=== PATIENT | female | born 1955 | race Caucasian/White ===

== ENCOUNTER 2025-01-29 13:14 | Outpatient (AMB) | payer MEDICARE, SELFPAY ==
--- NOTE | 2025-01-29 13:16 | A.OFFPC_ITS ---
Vital Signs 01/29/25 13:19 Height 5 ft 1.42 in Weight 136 lb BMI 25.3 BP 126/82 Blood Pressure Location Lt brachial Position Sitting Respiration 12 Pulse 78 Pulse Source Pulse Oximeter Temp 97.9 F Temp Source Oral Pulse Oximetry (%) 98 Oxygen Delivery Method Room Air Intake Visit Reasons: est care Intake Note: New patient visit [employer] De[employer] Required: No Allergies No Known Allergies Allergy (Verified 01/29/25 13:27) Medication List - Last Reconciled 02/04/25 by Lucy Koenig MD albuterol sulfate 90 mcg/actuation 2 inhalations inhalation Q4-6H PRN [calcium PO] estradiol 0.01%(0.1mg/gram) 1 appful vaginal DAILY multivitamin 1 tab PO DAILY zoledronic cxwq-lwcufjit-geopa 5 mg/100 mL (Reclast) ea IV Tobacco use date assessed: 01/29/25 Fall risk assessment: No Falls in past year Last assessed Fall Risk: 01/29/25 Dental Screening Dental Screen Date: 01/29/25 Did you have a dental visit in the last 12 months?: Yes Did you have a dental problem in the last 6 months where you did not have access to dental care?: No Was dental information given to patient?: Patient has dentist HPI HPI Comments History of Present Illness Details This is a 69 year old female with past medical history of mild intermittent asthma, osteoporosis, cystocele, presenting to [facility]. Transfer from [place] Mild intermittent asthma-on albuterol as needed. Usually only flairs when sick Venous insufficiency-saw vascular at [place]-Dr Petersen. Recommended to wear compression MSK: Left knee pain & OA. Sees orthopedics [facility]. 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 Will be due in Fall Colonoscopy 2018 Dr Haro-5 years. Was scheduled had bad reaction to prep to rescheduled for February. ROS CONSTITUTIONAL: Denies weight loss, fever and chills. HEENT: Denies changes in vision and hearing. RESPIRATORY: Denies SOB and cough. CV: Denies palpitations and CP GI: Denies abdominal pain, nausea, vomiting and diarrhea. : Denies dysuria and urinary frequency. MSK: Denies new myalgia and joint pain. SKIN: Denies rash and pruritus. NEUROLOGICAL: Denies headache PSYCHIATRIC: Denies recent changes in mood. PHYSICAL EXAM: GENERAL: Alert and oriented x 3. NAD EYES: EOMI. Anicteric. HENT: Moist mucous membranes. No scleral icterus. No cervical lymphadenopathy. LUNGS: Clear to auscultation bilaterally. CARDIOVASCULAR: Regular rate and rhythm. No murmur. No JVD. ABDOMEN: Soft, non-tender +bs EXTREMITIES: No edema. Non-tender. SKIN: No rashes or lesions. Warm. NEUROLOGIC: No focal neurological deficits. CN II-XII grossly intact PSYCHIATRIC: Cooperative. Appropriate mood and affect [facility] Medical History History of endometrial biopsy Surgical History H/O colonoscopy Family History Mother Cancer of breast HTN (hypertension) Mild cognitive impairment Father Kidney disease Brother High cholesterol Sister Esophageal cancer Other FH: mental illness Social History Housing: House Alcohol intake: current Patient Tobacco Use Status: Never used Tobacco e-Cigarette/Vaping Use: Never Used Second Hand Smoke Exposure: No service: No Current occupational status: retired Cognitive needs: No Hearing needs: No Vision needs: Yes (glasses) Questionnaire PHQ-9 Over the last 2 weeks, how often have you been bothered by any of the following problems? 1. Little interest or pleasure in doing things: not at all 2. Feeling down, depressed, or hopeless: not at all 3. Trouble falling or staying asleep, or sleeping too much: not at all 4. Feeling tired or having little energy: not at all 5. Poor appetite or overeating: not at all 6. Feeling bad about yourself - or that you are a failure or have let yourself or your family down: not at all 7. Trouble concentrating on things, such as reading the newspaper or watching television: not at all 8. Moving or speaking so slowly that other people could have noticed. Or the opposite - being so fidgety or restless that you have been moving around a lot more than usual: not at all 9. Thoughts that you would be better off or of hurting yourself in some way: not at all Total score: 0 Depression Screening Interpretation: Negative Depression Screening Done: Yes 97610 - PHQ-9 Billing: Yes Source: Developed by Drs. Laci Herzog, Monica Anderson, Asael Jackson and colleagues, with an educational daniel from [employer]. Thrive Questionnaire Date Thrive assessed: 01/29/25 I am a: Patient What is your living situation today?: I have a steady place to live Within the past 12 months, did the food you bought not last and you didn't have the money to get more?: Never true Within the past 12 months, did you worry whether your food would run out before you got money to buy more?: Never true Do you have trouble paying for medicines?: No Do you have trouble getting transportation to medical appointments?: No Do you have trouble paying your heating and electricity bill?: No Do you have trouble taking care of your child, family member or friend?: No Do you have trouble with day-to-day activities such as bathing, preparing meals, shopping, managing finances, etc.?: No Are you currently unemployed and looking for a job?: No Are you interested in more education?: No Please select the resources that you would like help with: None Currently or been in a relationship where the following occur: No concerns reported THRIVE Score: 0 AUDIT C Alcohol Use Questionnaire (AUDIT-C) 1. How often do you have a drink containing alcohol?: Monthly or less 2. How many drinks containing alcohol do you have on a typical day when you are drinking?: 1 or 2 3. How often do you have six or more drinks on one occasion?: Never Total Score: 1 MARJORIE-7 AMB Questionnaire MARJORIE-7 Date MARJORIE - 7 assessed: 01/29/25 Feeling nervous, anxious, or on edge: 0 = Not at all Not being able to stop or control worryin = Not at all Worrying too much about different things: 0 = Not at all Trouble relaxin = Not at all Being so restless that it is hard to sit still: 0 = Not at all Becoming easily annoyed or irritable: 0 = Not at all Feeling afraid as if something awful might happen: 0 = Not at all Total MARJORIE-7 score (0-4 normal; 5-9 mild; 10-14 moderate; 15-21 severe): 0 Source: Developed by Drs. Laci Herzog, Monica Anderson, Asael Jackson and colleagues, with an educational daniel from [employer]. MARJORIE-7 Assessment Billing MARJORIE-7 Assessment Tool: MARJORIE-7 Assessment 71699 Physical exam (Primary Care) Vital Signs: Last Vital Signs Temp 97.9 F 01/29/25 13:19 Pulse 78 01/29/25 13:19 Resp 12 01/29/25 13:19 BP 126/82 01/29/25 13:19 Pulse Ox 98 01/29/25 13:19 Oxygen Delivery Method Room Air 01/29/25 13:19 BMI result Body Mass Index 25.3 Tobacco/Smoking Status: Tobacco use Status Tobacco use date assessed 01/29/25 01/29/25 13:28 Patient Tobacco Use Status Never used Tobacco 01/29/25 13:27 e-Cigarette/Vaping Use Never Used 01/29/25 13:28 PHQ-9: PHQ-9 Score PHQ-9: Total score 0 02/03/25 22:49 Depression Screening Interpretation: Negative Thrive Assessment: Date of Thrive Assessment Date Thrive assessed 01/29/25 01/29/25 13:24 Currently or been in a relationship where the following occur: No concerns reported Coding Level of Care Code New Pt Level 4 (22358) Complex EM visit Add On G2211 Diagnoses Other osteoporosis, unspecified pathological fracture presence M81.8 Osteoporosis type: other Presence of current pathological fracture: unspecified Venous insufficiency I87.2 History of hysterectomy Z90.710 Additional Codes MARJORIE-7 Assessment Billing - MARJORIE-7 Assessment Tool: MARJORIE-7 Assessment 47074 ([id number]) PHQ-9 - 24007 - PHQ-9 Billing: Yes ([id number]) Assessment & Plan Assessment & Plan (1) Osteoporosis: Code(s): M81.0 - Age-related osteoporosis without current pathological fracture Category: Medical Qualifiers: Osteoporosis type: other Presence of current pathological fracture: unspecified Qualified Code(s): M81.8 - Other osteoporosis without current pathological fracture (2) Venous insufficiency: Code(s): I87.2 - Venous insufficiency (chronic) (peripheral) Category: Medical (3) History of hysterectomy: Code(s): Z90.710 - Acquired absence of both cervix and uterus Category: Surgical Plan 69 year old female presenting to [facility] care past medical, surgical, social reviewed Labs ordered Mammo, bone density orders Orders: Orders TSH reflex Free T4 01/29/25 R35.89 - Other polyuria, Z13.0 - Encounter for screening for diseases of the blood and blood-forming organs and certain disorders involving the immune mechanism, Z13.220 - Encounter for screening for lipoid disorders, Z13.228 - Encounter for screening for other metabolic disorders Hemoglobin and Hematocrit 01/29/25 R35.89 - Other polyuria, Z13.0 - Encounter for screening for diseases of the blood and blood-forming organs and certain disorders involving the immune mechanism, Z13.220 - Encounter for screening for lipoid disorders, Z13.228 - Encounter for screening for other metabolic disorders XR DEXA axial skeleton 01/29/25 M81.0 - Age-related osteoporosis without current pathological fracture MM tomosynthesis screening BI 01/29/25 Z12.31 - Encounter for screening mammogram for malignant neoplasm of breast Complete Blood Count Auto Diff 01/29/25 R35.89 - Other polyuria, Z13.0 - Encounter for screening for diseases of the blood and blood-forming organs and certain disorders involving the immune mechanism, Z13.220 - Encounter for screening for lipoid disorders, Z13.228 - Encounter for screening for other metabolic disorders Comprehensive Met. Panel 01/29/25 R35.89 - Other polyuria, Z13.0 - Encounter for screening for diseases of the blood and blood-forming organs and certain disorders involving the immune mechanism, Z13.220 - Encounter for screening for lipoid disorders, Z13.228 - Encounter for screening for other metabolic disorders Lipid Panel 01/29/25 R35.89 - Other polyuria, Z13.0 - Encounter for screening for diseases of the blood and blood-forming organs and certain disorders involving the immune mechanism, Z13.220 - Encounter for screening for lipoid disorders, Z13.228 - Encounter for screening for other metabolic disorders Medications: New albuterol sulfate 90 mcg/actuation 2 inhalations inhalation Q4-6H PRN 1 ea 3RF shortness of breath or wheezing
[2025-01-29 13:19] VITALS: BP 126/82; PULSE 78; RESP 12; TEMP 36.6; O2SAT 98; BMI 25.3
--- OUTSIDE RECORDS SUMMARY | 2025-01-29 14:02 | XMS_ITS ---
Author Name [facility] Organization Unknown Care Team Organization Name Specialty Phone Email Start Date End Da te [facility] DO Primary Care 07/12/202202/01 [facility] DO Primary Care 05/11/202202/01
--- OUTSIDE RECORDS SUMMARY | 2025-01-29 14:02 | XMS_ITS | Continuity of Care Document ---
Author Organization [facility] [address] [place] [address] Phone [phone] Care Team Providers Care Special Agent In Charge Name Role Phone Violeta Skaggs DO Care Team Information Receiv er [phone] Problems Active Problems Provider Date Disorder of thyroid gland Keshav Rangel Onset: 05/19/2022 Social History Type Date Description Comments Sex Female Sex Unknown Lives With Spouse Tobacco Use Start: Unknown Never Smoked Cigarettes ETOH Use Occasionally consumes alcoho l Allergies and adverse reactions Description No Known Drug Allergies Medications Active Medications SIG Qnty Indications Ordering Provider Date Albuterol Sulfate [id number](90Base) mcg/Act Aerosol Inhale 2 Puffs Into The Lungs Every 4 Hours as Needed For Cough, Wheezing Or Princess Unknown Vital Signs Date Vital Result Comment 05/19/2022 1:44pm BP Systolic 150 mmHg BP Diastolic 86 mmHg Heart Rate 72 /min Height 62 inches 5'2 Weight 137.00 lb BMI (Body Mass Index) 25.1 kg/m2 Results Test Acquired Date Facility Test Result H/L Range Note Anti Thyroid Peroxidase AB 05/19/2022 [facility] Anti Thyroid Peroxidase AB 407.7 IU/mL High (<5.6) 1 Free T3 05/19/2022 [facility] Free T3 2.7 pg/mL (2.3-5.0) TSH With Reflex To FT4 05/19/2022 [facility] TSH With Reflex To FT4 2.70 uIU/mL (0.4-4.2) Thyrotropin Receptor AB 05/19/2022 [facility] Thyrotropin Receptor AB 1.88 High 2 1 Antibody measurement represents one parameter in a multicriteria diagnostic process. Correlate results with clinical presentation. This test was performed on the [employer] immunoassay system. 2 Reference range: 0.0 0 to 1.75 Unit: IU/[place] [address] Medical Devices Description No Information Available Encounters Type Date Location Provider Dx Diagnosis Office Visit 05/19/2022 1:45p Main Office Cricket Fernández M.D. H05.20 Unspecified exophthalmos E03.9 Hypothyroidism, unsp ecified Assessments Date Code Description Provider 05/19/2022 H05.20 Exophthalmos Cricket posada M.D. 05/19/2022 E03.9 Hypothyroidism, unspecified Cricket Fernández M.D. Plan of Treatment No Information Available Functional Status Description No Information Available Mental Status Description No Information Available Referrals Description No Information Available
--- OUTSIDE RECORDS SUMMARY | 2025-01-29 14:02 | XMS_ITS | Clinical Summary ---
Author Organization [facility] Address [address] [place] [address] Phone Care Team Providers Care Hose Stripper Name Role Phone Nelli Bolton MD Primary Care Provider [phone] Allergies No known active allergies Medications calcium carbonate (CALCIUM ORAL) Take by mouth 2 (two) times a day. Active CHOLECALCIFEROL, VITAMIN D3, ORAL Take by mouth. Active NON FORMULARY 0 Refills, Maintenance, 03/04/23 15:34:00 EDT, Partial fill upon patient request if the prescription is for a schedule II opioid drug. 3 Active multivitamin (MULTIPLE VITAMINS ORAL) 2-3 tabs daily as directed on package Active NIACIN ORAL Take by mouth. Act alisha albuterol HFA (PROAIR HFA ; PROVENTIL HFA ; VENTOLIN HFA) 90 mcg/actuation inhaler Inhale 2 puffs by mouth every 4 (four) hours if needed (Cough, Wheezing or Shortness of Breath). 2 Active ascorbic acid, vitamin C, 100 mg tablet,chewable Take by mouth. 3 Active estradioL (ESTRACE) 0.01 % (0.1 mg/gram) vaginal cream Insert 0.5 g into the vagina 1 (one) time each day. Active zoledronic acid (RECLAST) 5 mg/100 mL piggyback Infuse 100 mL (5 mg total) into a venous catheter 1 (one) time. 4 Active diclofenac (VOLTAREN) 1 % topical gel APPLY 2 GRAMS TO THE AFFECTED AREAS 4 TIMES PER DAY X14 DAYS, THEN TRANSITION TO NEEDED FOR PAIN 4 Active zoledronic acid (RECLAST) 5 mg/100 mL piggybackIndicat ions:Osteoporosi s without current pathological fracture, unspecified osteoporosis type Infuse 100 mL (5 mg total) into a venous catheter 1 (one) time for 1 dose. 100 mL 5 Active polyethylene glycol (Golytely) 236-22.74-6.74 -5.86 gram solution Take 4L by mouth once for one dose. May substitue any PEG. Starting at 6PM the night before your procedure drink 1 8oz glasses at your own pace until you complete half of the gallon. Finish 2nd half of the gallon 5 hours before your procedure. 4000 mL 5 Active bisacodyL (DULCOLAX) 5 mg EC tablet Take 2 tablets by mouth right before beginning bowel prep. See instructions provided by the office 2 tablet 5 Active Additional Information Patient not taking.Reported on 01/23/2025 Active Problems Problem Noted Date Diagnosed Date Other osteoporosis without current pathological fracture 01/07/2025 Hypovitaminosis D 02/23/2016 Actinic keratosis of scalp 05/26/2015 Overview (04/11/2024): Dr Florian Urethral polyp 05/26/2015 Overview (04/11/2024): Seeing supplier engineer and urology Cystocele, midline 10/24/2007 Uterine prolapse 10/24/2007 Overview (04/11/2024): IMO update Headache 05/26/2007 Mild intermittent asthma 05/26/2007 Encounters Date Type Department Care Team Description 01/23/2025 1:23 PM EDT - 01/23/2025 11:59 PM EDT Hospital Encounter [facility] [address]nd [place] [address] Other osteoporosis without current pathological fracture (Primary Dx) Discharge Disposition: Home or Self Care 12/11/2024 Telephone Gastroenterology - [place] [address] [facility] [address] [place] [address] Juan Vitale, DO Special Procedure 11/22/[address] [facility] [address] [place] [address] Lisbet Martins MD PROVIDER CALL BACK from Last 3 Months Immunizations Name Administration Dates Next Due DTP 01/30/2022 Influenza trivalent, 0.5mL ( Fluzone High-dose) 65yo and older 04/16/2023 Influenza trivalent, 0.5mL, preservative free (Fluarix; FluLaval; Fluzone) ages 6mo and older (Afluria) 3 years and older 04/30/2015,04/24/2014,07/04/2011 Influenza trivalent, with preservative (Fluzone; Afluria) 6mo and older 04/07/2022,04/09/2021,03/31/2020,2018,04/02/2018,03/31/2017,05/18/2016,1 ,04/25/2013,04/03/2013 Influenza, Unspecified 04/07/2022,04/02/2018 MMR, measles mumps and rubel la Live (Priorix; M-M-R II) 12mo and older 12/21/2018,11/10/2018,03/11/1995 Pfizer SARS-CoV-2 COVID-19, mRNA, LNP-S, preservative free 06/03/2021 Pneumococcal conjugate 20 va lent (Prevnar 20, PCV 20) 2mo and older 06/10/2023 Td Tetanus diptheria (Tdvax) 7yo and older 10/26/2007,05/11/1994 Tdap Tetanus diptheria acell ular pertussis (Boostrix; Adacel) 7yo and older 12/29/2011 Tetanus Toxoid, Unspecified 07/04/2006 Zoster recombinant (Shingrix ) 19yo and older 01/14/2023,08/18/2022 Surgical History Surgery Date Site/Laterality Comments OTHER SURGICAL HISTORY 09/04 PROCEDURE: [place] ENDOMETRIAL BX W/WO ENDOCERVIX BX W/O DILAT SPX; COMMENT: DUB COLONOSCOPY 12/11/07 PROCEDURE: HISTORICAL COLONOSCOPY; COMMENT: normal; repeat in ten years COLONOSCOPY 05/23/2019 PROCEDURE: HISTORICAL COLONOSCOPY; COMMENT: polyp Medical History Medical History Date Comments Unspecified asthma(493.90) DX:Un specified asthma(493.90) Abnormal Pap smear of cervix DX: Abnormal Pap smear of cervix; COMMENT: mild/moderate dysplasia Urethral polyp 05/26/2015 DX:Urethral poly p; COMMENT: Seeing supplier engineer and urology Actinic keratosis of scalp 05/26/2015 DX:Ac tinic keratosis of scalp; COMMENT: Dr Florian Family History Medical History Relation Name Comments Breast cancer Aunt 1 2 PATERNAL AUN TS Hypertension Brother 1 Hyperlipidemia Father Other: kidney disease Father Breast cancer Mother Lumpectomy & R adiation Rx x 15 yrs ago Hypertension Mother Other: Other Mother cystocele Other: Other Sister 1 bladder problem s-dropped Other cancer Sister 2 esophageal Relation Name Status Comments Aunt 1 Aunt 2 2 PAT AUNTS BER[place] AST CA Brother 1 Brother 2 Alive HTN,GERD Father Alive glucose intoler ance late in life Maternal Grandfather CVA Maternal Grandmother (Age 80'S) CVA Mother (Age 81) BREAST CA DX 52, HTN, GLAUCOMA, DEMENTIA Paternal Grandfather (Age 70'S) CVA Paternal Grandmother (Age LATE 6 0'S) HEART DZ Sister 1 Sister 2 Sister 3 Alive healthy Son 1 Alive healthy Son 2 Alive healthy Social History Tobacco Use Types Packs/Day Years Used Date Smoking Tobacco: Never Smokeless Tobacco: Never Tobacco Cessation:Counseling Given: Not Answered Alcohol Use Standard Drinks/Week Comments Yes 0.8 (1 standard drink = 0.6 oz p ure alcohol) Comments Unknown Sex and Gender Information Value Date Recorded Sex Assigned at Female 01/23/2025 1:22 PM EDT Legal Sex Female 7:59 PM EST Gender Identity Female 01/23/2025 1:22 PM EDT Sexual Orientation Straight 01/23/2025 1: 22 PM EDT Obstetrics History Last Filed Vital Signs Vital Sign Reading Time Taken Comments Blood Pressure 133/78 01/23/2025 1:29 PM EDT Pulse 85 01/23/2025 1:29 PM EDT Temperature 36.2 C (97.1 F) 01/23/2025 1:29 PM EDT Respiratory Rate - - Oxygen Saturation 100% 01/23/2025 1:29 PM EDT Inhaled Oxygen Concentration - - Weight 62.6 kg (138 lb) 09/28/2024 9:50 AM EDT Height 157.5 cm (5' 2 ) 09/28/2024 9:50 AM EDT Body Mass Index 25.24 09/28/2024 9:50 AM EDT Plan of Treatment Upcoming Encounters Date Type Department Care Team (Late st Contact Info) Description 02/28/2025 8:00 AM EDT Appointment [facility] [address] [place] [address] Chetan Carrillo MD [address] [place] [address] Health Maintenance Due Date Last Done Comments Breast Cancer Screening 1955 RSV Immunization Adult Patients (1 - Risk 60-74 years 1-dose series) 2017 Medicare Annual Wellness Visit 06/12/2022 Osteoporosis Screening (Bone Density Screening) 06/12/2022 Social Influencers of Health Screening 06/12/2022 Falls Risk Assessment 2022 COVID-19 Vaccine ( season) 2024 05/02/2022, 06/03/2021, 10/16/2020, Additional history exists Colorectal Cancer Screening: Colonoscopy 05/23/2024 05/23/2019 Depression Screening 07/04/2024 Influenza Vaccine (#1) 2025 , 04/16/2023, 04/07/2022, Additional history exists Cholesterol Screening (Lipid Panel) 04/24/2029 04/24/2024, 03/01/2022 DTaP,Tdap,and Td Vaccines (5 - Td or Tdap) 01/31/2032 01/30/2022, 01/30/2022, 12/29/2011, Additional history exists MMR Vaccines Aged Out 12/21/2018, 11/01, 03/11/1995 No longer eligible based on patient's age to complete this topic Hepatitis C Screening Completed 03/01/2022 Zoster Vaccines Completed 01/14/2023, 08/18/2022 Pneumococcal Vaccine: 50+ Years Completed 06/10/2023 HIB Vaccines Aged Out No longer eligi ble based on patient's age to complete this topic HPV Vaccines Aged Out No longer eligi ble based on patient's age to complete this topic Hepatitis A Vaccines Aged Out No long er eligible based on patient's age to complete this topic Hepatitis B Vaccines Aged Out No long er eligible based on patient's age to complete this topic IPV Vaccines Aged Out No longer eligi ble based on patient's age to complete this topic Meningococcal ACWY Vaccine Aged Out N o longer eligible based on patient's age to complete this topic Meningococcal B Vaccine Aged Out No l onger eligible based on patient's age to complete this topic RSV Immunization Patients Under 20 months Aged Out No longer eligible based on patient's age to complete this topic Varicella Vaccines Aged Out No longer eligible based on patient's age to complete this topic Procedures Procedure Name Priority Date/Time Associated Diagnosis Comments CALCIUM Routine 01/11/2025 10:33 AM EDT Other osteoporosis without current pathological fracture CREATININE, SERUM Routine 01/11/2025 10: 33 AM EDT Other osteoporosis without current pathological fracture ALBUMIN Routine 01/11/2025 10:33 AM EDT Other osteoporosis without current pathological fracture HEPATITIS C SCREENING Routine 03/01/2022 LIPID PANEL Routine 03/01/2022 COLONOSCOPY Routine 05/23/2019 from Last 3 Months or Most Recently Relevant to Health Maintenance Results * Creatinine, Serum (01/11/2025 10:33 AM EDT) Creatinine 0.73 0.50 - 1.10 mg/dL LAB CHEMISTRY METHOD 01/11/2025 12:23 PM EDT [facility] eGFR 90 >=60 mL/min/1. 73m2 LAB CHEMISTRY METHOD 01/11/2025 12:23 PM EDT [facility] Comment:Calculation based on the Chronic Kidney Disease Epidemiology Collaboration (CKD-EPI) equation refit without adjustment for race. Blood Venous blood specimen / Unknown Venipuncture / Unknown 01/11/2025 10:33 AM EDT 01/11/2025 10:33 AM EDT us Lisbet Martins MD LAB BLOOD ORDERABLES Final Resul t Performing Organization Address [facility]/ZIP Co de Phone Number [facility] [address] [place] [address], [place] [phone] * Calcium (01/11/2025 10:33 AM EDT) [facility] Calcium 9.1 8.5 - 10.5 mg/dL LAB CHEMISTRY METHOD 01/11/2025 12:23 PM EDT [facility] Blood Venous blood specimen / Unknown Venipuncture / Unknown 01/11/2025 10:33 AM EDT 01/11/2025 10:33 AM EDT Lisbet Martins MD LAB BLOOD ORDERABLES Final Resul t Performing Organization Address [facility] Co de Phone Number [facility] [address] [place] [address], [place] [phone] * Albumin (01/11/2025 10:33 AM EDT) [facility] Albumin 4.0 3.2 - 5.0 g/dL LAB CHEMISTRY METHOD 01/11/2025 12:23 PM EDT [facility] Blood Venous blood specimen / Unknown Venipuncture / Unknown 01/11/2025 10:33 AM EDT 01/11/2025 10:33 AM EDT us Lisbet Martins MD LAB BLOOD ORDERABLES Final Resul t Performing Organization Address City/[facility]/ZIP Co de Phone Number [facility] [address] [place] [address], [place] [phone] * Hepatitis C Screening (03/01/2022) [facility] Hepatitis C Screening Abstracted us Historical Provider HEALTH MAINTENANCE Final Result * (ABNORMAL) Lipid panel (03/01/2022) LDL/HDL Ratio 3 0 - 4 Triglycerides 83 0 - 150 mg/dL Cholesterol 200 0 - 200 mg/dL HDL 61 >=40 mg/dL LDL Cholesterol 123(A) 0 - 100 mg/dL Blood Venous blood specimen / Unknown us Historical Provider LAB BLOOD ORDERABLES Renée l Result * Colonoscopy (05/23/2019) Colonoscopy No interpretation , abstracted Anatomical Region Laterality Modality Other us Historical Provider HEALTH MAINTENANCE Final Result from Last 3 Months or Most Recently Relevant to Health Maintenance Insurance [employer] Care Teams Hose Stripper Relationship Specialty Start Date End Date Nelli Bolton MD [address] [place] [id number] PCP - General 12/30/23
--- OUTSIDE RECORDS SUMMARY | 2025-01-29 14:02 | XMS_ITS | Clinical Summary ---
Author Organization [facility] Address [address] [place] [address] Care Team Providers Care Hand Former Helper Name Role Phone Nelli Bolton MD Primary Care Provider [phone] Allergies No known active allergies Medications Medication Sig Dispensed Refills Start Date End Date Status albuterol 108 (90 Base) MCG/ACT inhaler 0 05/03/2022 Active Calcium 500-2.5 MG-MCG CHEW Chew by mouth. 0 Active Diclofenac Sodium 1 % GEL APPLY 2 GRAMS TO THE AFFECTED AREAS 4 TIMES PER DAY X14 DAYS, THEN TRANSITION TO NEEDED FOR PAIN 0 12/19/2023 Active Emollient (COLLAGEN EX) 0 Refills, Maintenance, 03/04/23 15:34:00 EDT, Partial fill upon patient request if the prescription is for a schedule II opioid drug. 0 03/04/2023 Active estradiol (ESTRACE) 0.1 MG/GM vaginal cream INSERT 0.5 GRAMS VAGINALLY EVERY DAY 0 11/17/2023 Active Cholecalciferol (Vitamin D3) 50 MCG (2000 UT) capsule Take 50 mcg by mouth. 0 03/04/2023 Active Ascorbic Acid 100 MG CHEW Chew by mouth. 0 03/04/2023 Active Active Problems Problem Noted Date Diagnosed Date Osteoporosis 12/29/2023 Social History Tobacco Use Types Packs/Day Years Used Date Smoking Tobacco: Never Assessed Sex and Gender Information Value Date Recorded Sex Assigned at Female 12/26/2023 10:05 AM EDT Gender Identity Not on file Sexual Orientation Not on file Job Start Date Occupation Industry Not on file Not on file Not on file Last Filed Vital Signs Vital Sign Reading Time Taken Comments Blood Pressure 152/80 12/30/2023 10:39 AM EDT Pulse 82 12/30/2023 10:39 AM EDT Temperature 36.6 C (97.8 F) 12/30/2023 10:39 AM EDT Respiratory Rate 16 12/30/2023 10:39 AM EDT Oxygen Saturation 99% 12/30/2023 10:39 AM EDT Inhaled Oxygen Concentration - - Weight 62.7 kg (138 lb 3.7 oz) 12/30/2023 10:39 AM EDT Height - - Body Mass Index - - Plan of Treatment Health Maintenance Due Date Last Done Comments Hepatitis C Screening 1955 Depression Screening 1969 Preventative Health Evaluation 1975 Colon Cancer Screening (Colonoscopy) 2002 Breast Cancer Screening (Mammogram) 2007 Fall Risk Assessment 2022 Osteoporosis Screening (DEXA Scan) 2022 COVID-19 Vaccine ( season) 2024 05/02/2022, 06/03/2021, 10/16/2020, Additional history exists Influenza Vaccine (#1) 2025 , 04/07/2022, 04/09/2021, Additional history exists DTap / Tdap / Td (3 - Td or Tdap) 01/31/2032 01/30/2022, 12/29/2011 RSV Adult > 60+ Yrs or (1 - 1-dose 75+ series) 2032 Shingrix-Zoster Vaccine Completed 01/14/2023, 08/18 Pneumococcal Vaccine Completed 06/10/2023 Hepatitis B Vaccines Aged Out No long er eligible based on patient's age to complete this topic RSV Ped < 20 months Aged Out No longe r eligible based on patient's age to complete this topic Care Teams Hand Former Helper Relationship Specialty Start Date End Date Nelli Bolton MD [address] [place] [id number] PCP - General Internal Medicine 12/30/23
== END 2025-01-29 14:00 | disposition home or self-care (01) ==
LOC: HO.HMCFM 13:15
PROVIDERS: PCP Internal Medicine; Visit Provider Internal Medicine
DX: M81.8 Other osteoporosis without current pathological fracture (principal); I87.2 Venous insufficiency (chronic) (peripheral); Z90.710 Acquired absence of both cervix and uterus

== ENCOUNTER → 2025-01-29 13:14 | Outpatient (BNVA) | payer MEDICARE, SELFPAY | PROVIDERS: PCP Internal Medicine; Visit Provider Internal Medicine | DX: Z13.31 Encounter for screening for depression (principal); Z13.30 Encounter for screening examination for mental health and behavioral disorders, unspecified; M81.0 Age-related osteoporosis without current pathological fracture; I87.2 Venous insufficiency (chronic) (peripheral); Z90.710 Acquired absence of both cervix and uterus | CPT/HCPCS: 96127; 99202 ==

== ENCOUNTER 2025-06-12 12:44 | Outpatient (REF) | payer MEDICARE, SELFPAY ==
[2025-06-12 15:28] LABS: MANUAL DIFF FLAG NO
[2025-06-12 15:34] LABS: Hematocrit 37.7 % (37.0-47.0); Hemoglobin 12.3 g/dl (12.0-16.0); Imm Gran Abs Auto 0.02 X10*3/uL (0.00-0.03); Imm Gran Pct Auto 0.3 % (0.0-0.4); Lymphocytes Absolute Auto 1.4 X10*3/uL (1.2-4.9); Mean Corpuscular HGB Conc 32.6 g/dl (31.0-35.0); Mean Corpuscular Hemoglobin 28.6 pg (27.0-33.0); Mean Corpuscular Volume 87.7 fL (80.0-98.0); NRBC Abs Auto 0.000 X10*3/uL (0.0-0.012); NRBC Pct Auto 0.0 /100WBC (0.0-0.2); Platelet Count 298 X10*3/uL (160-400); Red Blood Count 4.30 X10*6/uL (4.20-5.50); White Blood Count 6.9 X10*3/uL (4.8-10.8)
[2025-06-12 19:03] LABS: Alanine Aminotransferase 27 U/L (0-31); Albumin Level 4.5 g/dL (3.5-5.0); Alkaline Phosphatase 57 U/L (39-117); Anion Gap 11 (12-20); Aspartate Amino Transferase 35 U/L (5-31); Blood Urea Nitrogen 14 mg/dL (9-16); Calcium 8.9 mg/dL (8.4-10.2); Carbon Dioxide 27 mmol/L (22-29); Chloride 101 mmol/L (96-108); Cholesterol 188 mg/dL (<200); Estimated Glomerular Filt Rate > 60; HDL Cholesterol 64 mg/dL (>40); Iron 57 mcg/dL (30-160); Percent Iron Saturation 18 % (15-50); Potassium 4.3 mmol/L (3.3-5.1); Sodium 135 mmol/L (135-145); Total Iron Binding Capacity 309 mcg/dL (228-428); Total Protein 7.7 g/dL (6.5-8.0); Triglycerides 97 mg/dL (<150); Unsaturated Iron Binding 252 ug/dL
--- OUTSIDE RECORDS SUMMARY | 2025-06-12 19:37 | XMS_ITS | Continuity of Care Document ---
Author Organization [facility] [address] [place] [address] Phone [phone] Care Team Providers Care Scale Model Maker Name Role Phone Violeta Skaggs DO Care Team Information Receiv er [phone] Problems Active Problems Provider Date Disorder of thyroid gland Keshav Rangel Onset: 05/19/2022 Social History Type Date Description Comments Sex Female Sex Unknown Lives With Spouse Tobacco Use Start: Unknown Never Smoked Cigarettes ETOH Use Occasionally consumes alcoho l Allergies and adverse reactions Description No Known Drug Allergies Medications Active Medications SIG Qnty Indications Ordering Provider Date Albuterol Sulfate SJH134(90Base) mcg/Act Aerosol Inhale 2 Puffs Into The [...] Range Note Anti Thyroid Peroxidase AB 05/19/2022 [facility] Anti Thyroid Peroxidase AB 407.7 IU/mL High (<5.6) 1 Free T3 05/19/2022 [facility] Free T3 2.7 pg/mL (2.3-5.0) TSH With Reflex To FT4 05/19/2022 [facility] TSH With Reflex To FT4 2.70 uIU/mL (0.4-4.2) Thyrotropin Receptor AB 05/19/2022 [facility] Thyrotropin Receptor AB 1.88 High 2 1 Antibody measurement represents one parameter in a multicriteria diagnostic process. Correlate results with clinical presentation. This test was performed on the [employer] immunoassay system. 2 Reference range: 0.0 0 to 1.75 Unit: IU/[place] [address] Medical Devices Description No Information Available Encounters [...]
--- OUTSIDE RECORDS SUMMARY | 2025-06-12 19:37 | XMS_ITS | Clinical Summary ---
Author Organization [facility] Address [address] [place] [address] Phone Care Team Providers Care Wildlife Conservation Officer Name Role Phone Lucy Koenig MD Primary Care Provider Allergies No known active allergies Medications calcium carbonate (CALCIUM ORAL) Take by mouth 2 (two) times a day. Active NON FORMULARY 0 Refills, Maintenance, 03/04/23 15:34:00 EDT, Partial fill upon patient request if the prescription is for a schedule II opioid drug. 03/04/20 23 Active multivitamin (MULTIPLE VITAMINS ORAL) 2-3 tabs daily as directed on package Active albuterol HFA (PROAIR HFA ; PROVENTIL HFA ; VENTOLIN HFA) 90 mcg/actuation inhaler Inhale 2 puffs by mouth every 4 (four) hours if needed (Cough, Wheezing or Shortness of Breath). 05/03/20 22 Active estradioL (ESTRACE) 0.01 % (0.1 mg/gram) vaginal cream Insert 0.5 g into the vagina 1 (one) time each day. Active zoledronic acid (RECLAST) 5 mg/100 mL piggyback Infuse 100 mL (5 mg total) into a venous catheter 1 (one) time. 11/16/19 24 Active zoledronic acid (RECLAST) 5 mg/100 mL piggybackIndicat ions:Osteoporosi s without current pathological fracture, unspecified osteoporosis type Infuse 100 mL (5 mg total) into a venous catheter 1 (one) time for 1 dose. 100 mL 09/29/19 25 Active polyethylene glycol (Golytely) 236-22.74-6.74 -5.86 gram solution Take 4L by mouth once for one dose. May substitue any PEG. Starting at 6PM the night before your procedure drink 1 8oz glasses at your own pace until you complete half of the gallon. Finish 2nd half of the gallon 5 hours before your procedure. 4000 mL 10/16/19 Active Additional Information Patient not taking.Reported on 03/05/2025 sodium,potassium ,mag sulfates (Suprep Bowel Prep Kit) 17.5-3.13-1.6 gram recon soln bowel prep kit oral solution Take 177ML by mouth for 2 doses. SEE INSTRUCTIONS PROVIDED BY OFFICE. 1 kit 02/15/20 Active Additional Information Patient not taking.Reported on 03/05/2025 sod sulf-pot chloride-mag sulf 1.479-0.188- 0.225 gram tablet Take 12 each by mouth See administration instructions for 2 doses. 24 tablet 03/14/20 25 Active Active Problems Problem Noted Date Diagnosed Date Other osteoporosis without current pathological fracture 01/07/2025 Hypovitaminosis D 02/23/2016 Actinic keratosis of scalp 05/26/2015 Overview (04/11/2024): Dr Florian Urethral polyp 05/26/2015 Overview (04/11/2024): Seeing physician practice consultant and urology Cystocele, midline 10/24/2007 Uterine prolapse 10/24/2007 Overview (04/11/2024): IMO update Headache 05/26/2007 Mild intermittent asthma 05/26/2007 Encounters Date Type Department Care Team Description 03/28/2025 4:13 PM EDT Anesthesia Event [facility] Endoscopy [address] [place] [id number] Raj Marshall MD 03/28/2025 2:56 PM EDT - 03/28/2025 11:59 PM EDT Hospital Encounter [facility] Endoscopy [address] [place] [address] Chetan Carrillo MD Gomes, Sheldon B, MD History of colon polyps Discharge Disposition: Home or Self Care from Last 3 Months Immunizations Immunization Administration Dates Next Due DTP 01/30/2022 Influenza [...] Site/Laterality Comments OTHER SURGICAL HISTORY 09/04 PROCEDURE: [place] ENDOMETRIAL BX W/WO ENDOCERVIX BX W/O DILAT SPX; COMMENT: DUB COLONOSCOPY 12/11/07 PROCEDURE: HISTORICAL COLONOSCOPY; COMMENT: normal; repeat in ten years COLONOSCOPY 05/23/2019 PROCEDURE: HISTORICAL COLONOSCOPY; COMMENT: polyp HYSTERECTOMY BLADDER SURGERY Medical History Medical History Date Comments Unspecified asthma(493.90) DX:Un specified asthma(493.90) Abnormal Pap smear of cervix DX: Abnormal Pap smear of cervix; COMMENT: mild/moderate dysplasia Urethral polyp 05/26/2015 DX:Urethral poly p; COMMENT: Seeing physician practice consultant and urology Actinic keratosis of scalp 05/26/2015 DX:Ac tinic keratosis of scalp; COMMENT: Dr Florian Colon polyp Female bladder prolapse Family History Medical History Relation Name Comments [...] Not Answered Alcohol Use Standard Drinks/Week Comments Not Currently 0.8 (1 standard drink = 0.6 oz p ure alcohol) Interpersonal Safety Answer Date Record ed Physical Abuse Unrecognized value 03/28/2025 Verbal Abuse Unrecognized value 03/28/2025 Comments Unknown Sex and Gender Information Value Date Recorded Sex Assigned at Female 01/23/2025 1:22 PM EDT Legal Sex Female 7:59 PM EST Gender Identity Female 01/23/2025 1:22 PM EDT Sexual Orientation Straight 01/23/2025 1: 22 PM EDT Last Filed Vital Signs Vital Sign Reading Time Taken Comments Blood Pressure 143/87 03/28/2025 5:09 PM EDT Pulse 82 03/28/2025 5:09 PM EDT Temperature 36.6 C (97.9 F) 03/28/2025 4:49 PM EDT Respiratory Rate 16 03/28/2025 5:09 PM EDT Oxygen Saturation 100% 03/28/2025 5:09 PM EDT Inhaled Oxygen Concentration - - Weight 61.7 kg (136 lb) 03/28/2025 3:20 PM EDT Height 157.5 cm (5' 2 ) 03/28/2025 3:20 PM EDT Body Mass Index 24.87 03/28/2025 3:20 PM EDT Plan of Treatment Upcoming Encounters Date Type Department Care Team (Late st Contact Info) Description 07/08/2025 1:40 PM EST Office Visit Endocrinology - [facility] [address] [place] [address] Yennifer Salazar MD [address] [place] [address] Health Maintenance Due Date Last Done Comments Breast Cancer Screening 1955 RSV Immunization Adult Patients (1 - Risk 50-74 years 1-dose series) 2007 Medicare Annual Wellness Visit 06/12/2022 Osteoporosis Screening (Bone Density Screening) 06/12/2022 Social Influencers of Health Screening 06/12/2022 Depression Screening 07/04/2024 COVID-19 Vaccine ( season) 2025 05/02/2022, 06/03/2021, 10/16/2020, Additional history exists Influenza Vaccine (#1) 2025 , 04/16/2023, 04/07/2022, Additional history exists Falls Risk Assessment 03/28/2026 03/28/2025 Cholesterol Screening (Lipid Panel) 04/24/2029 04/24/2024, 03/01/2022 Colorectal Cancer Screening: Colonoscopy 03/28/2030 03/28/2025, 05/23/2019, 01/10/2008 DTaP,Tdap,and Td Vaccines (5 - Td or [...] Procedure Name Priority Date/Time Associated Diagnosis Comments COLONOSCOPY Routine 03/28/2025 4:48 PM EDT History of colon polyps HM HEPATITIS C SCREENING Routine 03/01/2022 LIPID PANEL Routine 03/01/2022 from Last 3 Months or Most Recently Relevant to Health Maintenance Results * COLONOSCOPY Anesthesia - MAC; [facility] ENDOSCOPY (03/28/2025 4:48 PM EDT) Anatomical Region Laterality Modality Endoscopy 03/28/2025 4:12 PM EDT Impressions 03/28/2025 4:54 PM EDT - The entire examined colon is normal on direct and retroflexion views. - No specimens collected. Recommendation: - Discharge patient to home. - Repeat colonoscopy in 10 years for surveillance. Narrative 03/28/2025 4:54 PM EDT [facility] GI Patient Name: Gabby Lovett Procedure Date: 03/28/2025 4:12 PM Date of : 1955 Age: 69 Gender: Female Note Status: Finalized Attending MD: Chetan Carrillo MD, Procedure Date No Time: 03/28/2025 Procedure: Colonoscopy Indications: High risk colon cancer surveillance: Personal history of colonic polyps Providers: Chetan Carrillo MD Referring MD: Chetan Carrillo MD Medicines: Monitored Anesthesia Care Complications: No immediate complications. Estimated blood loss: None. Estimated Blood Loss: Estimated blood loss: none. Procedure: Pre-Anesthesia Assessment: - Prior to the procedure, a History and Physical was performed, and patient medications and allergies were reviewed. The patient is competent. The risks and benefits of the procedure and the sedation options and risks were discussed with the patient. All questions were answered and informed consent was obtained. Patient identification and proposed procedure were verified by the physician, the nurse, the meter tester primary and the machine operator slitter technician in the pre-procedure area in the endoscopy suite. Mental Status Examination: alert and oriented. Airway Examination: normal oropharyngeal airway and neck mobility. Respiratory Examination: clear to auscultation. CV Examination: normal. Prophylactic Antibiotics: The patient does not require prophylactic antibiotics. Prior Anticoagulants: The patient has taken no anticoagulant or antiplatelet agents. ASA Grade Assessment: II - A patient with mild systemic disease. After reviewing the risks and benefits, the patient was deemed in satisfactory condition to undergo the procedure. The anesthesia plan was to use monitored anesthesia care (MAC). Immediately prior to administration of medications, the patient was re-assessed for adequacy to receive sedatives. The heart rate, respiratory rate, oxygen saturations, blood pressure, adequacy of pulmonary ventilation, and response to care were monitored throughout the procedure. The physical status of the patient was re-assessed after the procedure. After I obtained informed consent, the scope was passed under direct vision. Throughout the procedure, the patient's blood pressure, pulse, and oxygen saturations were monitored continuously. The Colonoscope was introduced through the anus and advanced to the cecum, identified by appendiceal orifice and ileocecal valve. The colonoscopy was performed without difficulty. The patient tolerated the procedure well. The quality of the bowel preparation was good. Findings: The perianal and digital rectal examinations were normal. The entire examined colon appeared normal on direct and retroflexion views. Procedure Code(s): --- Professional --- G0105, Colorectal cancer screening; colonoscopy on individual at high risk Diagnosis Code(s): --- Professional --- Z86.010, Personal history of colonic polyps CPT copyright 2020 [employer]. All rights reserved. The codes documented in this report are preliminary and upon automatic typewriter inspector review may be revised to meet current compliance requirements. Chetan Carrillo MD 03/28/2025 4:53:42 PM This report has been signed electronically.Chetan Carrillo MD Number of Addenda: 0 Note Initiated On: 03/28/2025 4:12 PM Scope Withdrawal Time: 0 hours 11 minutes 15 seconds Scope In: 4:26:57 PM Scope Out: 4:48:31 PM Endoscopy Department at [facility] - [address] [place] [id number] Procedure Note Chetan Carrillo MD - 03/28/2025 [facility] GI Patient Name: Gabby Lovett Procedure Date: 03/28/2025 4:12 PM Date of : 1955 Age: 69 Gender: Female Note Status: Finalized Attending MD: Chetan Carrillo MD, Procedure Date No Time: 03/28/2025 Procedure: Colonoscopy Indications: High risk colon cancer surveillance: Personalhistory of colonic polyps Providers: Chetan Carrillo MD Referring MD: Chetan Carrillo MD Medicines: Monitored Anesthesia Care Complications: No immediate complications. Estimated blood loss:None. Estimated Blood Loss: Estimated blood loss: none. Procedure: Pre-Anesthesia Assessment: - Prior to the procedure, a History and Physicalwas performed, and patient medications and allergieswere reviewed. The patient is competent. The risks and benefits of the procedure and the sedation optionsand risks were discussed with the patient. Allquestions were answered and informed consent was obtained. Patient identification and proposed procedure were verified by the physician, the nurse, theanesthetist and the machine operator slitter technician in the pre-procedure area in the endoscopy suite. Mental Status Examination: alertand oriented. Airway Examination: normal oropharyngeal airway and neck mobility. Respiratory Examination: clear to auscultation. CV Examination: normal. Prophylactic Antibiotics: The patient does notrequire prophylactic antibiotics. Prior Anticoagulants: The patient has taken no anticoagulant or antiplatelet agents. ASA Grade Assessment: II - A patient withmild systemic disease. After reviewing the risks and benefits, the patient was deemed in satisfactory condition to undergo the procedure. The anesthesia plan was to use monitored anesthesia care (MAC). Immediately prior to administration of medications, the patient was re-assessed for adequacy to receive sedatives. The heart rate, respiratory rate, oxygen saturations, blood pressure, adequacy of pulmonary ventilation, and response to care were monitored throughout the procedure. The physical status ofthe patient was re-assessed after the procedure. After I obtained informed consent, the scope was passed under direct vision. Throughout theprocedure, the patient's blood pressure, pulse, and oxygen saturations were monitored continuously. The Colonoscope was introduced through the anus and advanced to the cecum, identified by appendiceal orifice and ileocecal valve. The colonoscopy was performed without difficulty. The patient tolerated the procedure well. The quality of the bowel preparation was good. Findings: The perianal and digital rectal examinations were normal. The entire examined colon appeared normal on direct and retroflexion views. Procedure Code(s): --- Professional --- G0105, Colorectal cancer screening; colonoscopy on individual at high risk Diagnosis Code(s): --- Professional --- Z86.010, Personal history of colonic polyps CPT copyright 2020 [employer]. All rights reserved. The codes documented in this report are preliminary and upon automatic typewriter inspector reviewmay be revised to meet current compliance requirements. Chetan Carrillo MD 03/28/2025 4:53:42 PM This report has been signed electronically.Chetan Carrillo MD Number of Addenda: 0 Note Initiated On: 03/28/2025 4:12 PM Scope Withdrawal Time: 0 hours 11 minutes 15 seconds Scope In: 4:26:57 PM Scope Out: 4:48:31 PM Endoscopy Department at [facility] - [address] [place] [phone] IMPRESSION: - The entire examined colon is normal on direct and retroflexion views. - No specimens collected. Recommendation: - Discharge patient to home. - Repeat colonoscopy in 10 years forsurveillance. Chetan Carrillo MD GI~PROCEDURE ORDERABLES Fin al Result * Hepatitis C Screening (03/01/2022) Pathologist [facility] Hepatitis C Screening Abstracted Historical Provider HEALTH MAINTENANCE Final Result * (ABNORMAL) Lipid panel (03/01/2022) LDL/HDL Ratio 3 0 - 4 Triglycerides 83 0 - 150 mg/dL Cholesterol 200 0 - 200 mg/dL HDL 61 >=40 mg/dL LDL Cholesterol 123(A) 0 - 100 mg/dL Blood Venous blood specimen / Unknown us Historical Provider LAB BLOOD ORDERABLES Renée waddell Result from Last 3 Months or Most Recently Relevant to Health Maintenance Insurance [employer] Care Teams Wildlife Conservation Officer Relationship Specialty Start Date End Date Lucy Koenig MD [address] [place] [address] [address] [place], [place] [id number] PCP - General Internal Medicine 03/28/25
--- OUTSIDE RECORDS SUMMARY | 2025-06-12 19:38 | XMS_ITS | Clinical Summary ---
Author Organization [facility] Prior to 12/01/24 Address [address] [place] [address] Care Team Providers Care Sql Report Analyst Name Role Phone Nelli Bolton MD Primary Care Provider [phone] Allergies No known active allergies Medications Medication [...] (DEXA Scan) 2022 COVID-19 Vaccine ( season) 2025 05/02/2022, 06/03/2021, [...] age to complete this topic Care Teams Sql Report Analyst Relationship Specialty Start Date End Date Nelli Bolton MD [address] [place] [id number] PCP - General Internal Medicine 12/30/23
== END 2025-06-12 12:45 ==
LOC: HO.WFDLDS 12:44
PROVIDERS: Visit Provider Internal Medicine
DX: Z13.0 Encounter for screening for diseases of the blood and blood-forming organs and certain disorders involving the immune mechanism (principal); Z13.228 Encounter for screening for other metabolic disorders; Z13.220 Encounter for screening for lipoid disorders; R35.89 Other polyuria; Z13.29 Encounter for screening for other suspected endocrine disorder; Z13.6 Encounter for screening for cardiovascular disorders
CPT/HCPCS: 36415; 80053; 80061; 83540; 84443; 85025

== ENCOUNTER 2025-06-21 14:12 | Outpatient (AMB) | payer MEDICARE, SELFPAY ==
--- NOTE | 2025-06-21 14:24 | A.OFFVIS_ITS ---
Intake Vital Signs 06/21/25 14:31 Height 5 ft 1.42 in Weight 137 lb 6 oz BMI 25.6 BP 134/86 Blood Pressure Location Rt brachial Position Sitting Respiration 14 Pulse 51 Pulse Source Pulse Oximeter Pulse Oximetry (%) 100 Oxygen Delivery Method Room Air Intake Visit Reasons: AWV + CPE Intake Note: Medical wellness. Would like an annual breast exam. Truck Jumper Required: No Allergies No Known Allergies Allergy (Verified 06/21/25 14:26) HPI HPI Comments History of Present Illness Details This is a 69 year old female with past medical history of mild intermittent asthma, osteoporosis, cystocele, presenting For MWV Mild intermittent asthma-on albuterol as needed. Usually only flairs when sick Venous insufficiency-saw vascular at [place]-Dr Petersen. Recommended to wear compression MSK: Left knee pain & OA. Sees orthopedics [facility]. 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 HEENT: Denies changes in vision and hearing. RESPIRATORY: Denies SOB and cough. CV: Denies palpitations and CP GI: Denies abdominal pain, nausea, vomiting and diarrhea. : Denies dysuria and urinary frequency. MSK: Denies new myalgia and joint pain. SKIN: Denies rash and pruritus. NEUROLOGICAL: Denies headache PSYCHIATRIC: Denies recent changes in mood. PHYSICAL EXAM: GENERAL: Alert and oriented x 3. NAD EYES: EOMI. Anicteric. HENT: Moist mucous membranes. No scleral icterus. No cervical lymphadenopathy. LUNGS: Clear to auscultation bilaterally. CARDIOVASCULAR: Regular rate and rhythm. No murmur. No JVD. ABDOMEN: Soft, non-tender +bs EXTREMITIES: No edema. Non-tender. SKIN: No rashes or lesions. Warm. NEUROLOGIC: No focal neurological deficits. CN II-XII grossly intact PSYCHIATRIC: Cooperative. Appropriate mood and affect [facility] Surgical History History of endometrial biopsy H/O colonoscopy Family History Mother Cancer of breast HTN (hypertension) Mild cognitive impairment Father Kidney disease Brother High cholesterol Sister Esophageal cancer Other FH: mental illness Social History Housing: House Alcohol intake: current Patient Tobacco Use Status: Never used Tobacco e-Cigarette/Vaping Use: Never Used Second Hand Smoke Exposure: No service: No Current occupational status: retired Cognitive needs: No Hearing needs: No Vision needs: Yes (glasses) Questionnaire Medicare Wellness Checkup What [age] 65-71 What gender do you identify with?: female During the past 4 weeks, how much have you been bothered by emotional problems such as feeling anxious, depressed, irritable, sad or downhearted, and blue?: not at all During the past 4 weeks, has your physical & emotional health limited your social activities with family, friends, neighbors, or groups?: not at all During the past 4 weeks, how much bodily pain have you generally had?: no pain During the past 4 weeks, was someone available to help you if you needed & wanted help?: yes, as much as I wanted During the past 4 weeks, what was the hardest physical activity you could do for at least 2 minutes?: moderate Can you get to places out of walking distance without help? (For eg., can you travel alone on buses, taxis or drive your car?): Yes Can you go shopping for groceries or clothes without someone's help?: Yes Can you prepare your own meals?: Yes Can you do your housework without help?: Yes Because of any health problems, do you need the help of another person with your personal care needs such as eating, bathing, dressing or getting around the house?: Yes Can you handle your own money without help?: Yes During the past 4 weeks how have things been going for you?: very well; could hardly better Are you having difficulties driving your car?: no Do you always fasten your seat belt when you are in a car?: yes, usually During past 4 weeks, have you been bothered by the following: never: Falling or dizzy when standing up, Sexual problems?, Trouble eating well?, Teeth or denture problems?, Problems using the telephone? and Tiredness or fatigue? Are you afraid of falling?: No Are you a smoker?: no During the past 4 weeks, how many drinks of wine, beer, or other alcoholic beverages did you have?: 1 drink or less per week Do you exercise for about 20 minutes 3 or more times a week?: yes, all the time Have you been given information to help with the following?: yes: Hazards in your house that might hurt you? and yes: Keeping track of your medications? How often do you have trouble taking medicines the way you have been told to take them?: I always take medicine as prescribed How confident are you that you can control & manage most of your health problems?: very confident What is your race?: White Activity of Daily Living Bathing - sponge bath, tub bath or shower: receives no assistance (gets in/out by self, if usual bathing means Dressing - getting clothes from closets & drawers, including inner/outer garments & fasteners.: gets clothes & gets completely dressed without help Toileting - going to the 'toilet room' for urine/bowel elimination & cleaning self/arranging clothes: goes to toilet room, cleans self, arranges clothes without help Transfer: moves in & out of bed and chair without help (may use support object) Feeding: feeds self without help Total Score: 0 Information obtained from: patient Using telephone: independent Traveling: independent Shopping: independent Preparing meals: independent Housework: independent Taking medicine: independent Managing money: independent Physical Exam Vital Signs: Last Vital Signs Pulse 51 06/21/25 14:31 Resp 14 06/21/25 14:31 BP 134/86 06/21/25 14:31 Pulse Ox 100 06/21/25 14:31 Oxygen Delivery Method Room Air 06/21/25 14:31 BMI result Body Mass Index 25.6 Assessment & Plan Assessment & Plan (1) Medicare annual wellness visit, subsequent: Code(s): Z00.00 - Encounter for general adult medical examination without abnormal findings (2) Venous insufficiency: Code(s): I87.2 - Venous insufficiency (chronic) (peripheral) (3) Osteoporosis: Code(s): M81.0 - Age-related osteoporosis without current pathological fracture Qualifiers: Osteoporosis type: other Presence of current pathological fracture: unspecified Qualified Code(s): M81.8 - Other osteoporosis without current pathological fracture Plan 69 year old female presenting for MWV Interval history reviewed. Preventive measures for age discussed MW checkup, independent ADLS, care team reviewed Osteoporosis-continue follow up endocrinology Orders: Orders XR lumbar spine 2-3V 06/21/25 M54.9 - Dorsalgia, unspecified, M81.8 - Other osteoporosis without current pathological fracture Coding Level of Care Code Medicare Subsequent (G0439) Diagnoses Medicare annual wellness visit, subsequent Z00.00 Venous insufficiency I87.2 Other osteoporosis, unspecified pathological fracture presence M81.8 Osteoporosis type: other Presence of current pathological fracture: unspecified
[2025-06-21 14:31] VITALS: BP 134/86; PULSE 51; RESP 14; O2SAT 100; BMI 25.6
--- OUTSIDE RECORDS SUMMARY | 2025-06-21 15:45 | XMS_ITS | Clinical Summary ---
Author Organization [facility] Address [address] [place] [address] Phone Care Team Providers Care Multimedia Programmer Name Role Phone Lucy Koenig MD Primary Care Provider [phone] Allergies No known active allergies Medications calcium [...] Florian Urethral polyp 05/26/2015 Overview (04/11/2024): Seeing carpet cleaner and urology Cystocele, midline 10/24/2007 Uterine prolapse 10/24/2007 Overview (04/11/2024): IMO update Headache 05/26/2007 Mild intermittent asthma 05/26/2007 Encounters Date Type Department Care Team Description 03/28/2025 4:13 PM EDT Anesthesia Event [facility] [address] [place] [id number] Raj Marshall MD 03/28/2025 2:56 PM EDT - 03/28/2025 11:59 PM EDT Hospital Encounter [facility] [address] [place] [address] Chetan Carrillo MD Gomes, Sheldon B, MD [...] Site/Laterality Comments OTHER SURGICAL HISTORY 09/04 PROCEDURE: MT ENDOMETRIAL BX W/WO ENDOCERVIX BX W/O DILAT [...] polyp 05/26/2015 DX:Urethral poly p; COMMENT: Seeing carpet cleaner and urology Actinic keratosis of scalp 05/26/2015 [...] 1:40 PM EST Office Visit Endocrinology - [facility] [address] [place] [address] Yennifer Salazar MD [address] [place] [address] Health Maintenance Due Date Last Done Comments [...] Maintenance Results * COLONOSCOPY Anesthesia - [facility]; [facility] [email or web address] ENDOSCOPY (03/28/2025 4:48 PM EDT) Anatomical Region Laterality Modality Endoscopy 03/28/2025 4:12 PM EDT Impressions 03/28/2025 4:54 PM EDT - The entire examined colon is normal on direct and retroflexion views. - No specimens collected. Recommendation: - Discharge patient to home. - Repeat colonoscopy in 10 years for surveillance. Narrative 03/28/2025 4:54 PM EDT [facility] Patient Name: Gabby Lovett Procedure [...] verified by the physician, the nurse, the port cdl a driver and the fire extinguisher technician in the pre-procedure area in the [...] history of colonic polyps CPT copyright 2020 [employer]. All rights reserved. The codes documented in this report are preliminary and upon pole incisor operator review may be revised to meet current compliance requirements. Chetan Carrillo MD 03/28/2025 4:53:42 PM This report has been signed electronically.Chetan Carrillo MD Number of Addenda: 0 Note Initiated On: 03/28/2025 4:12 PM Scope Withdrawal Time: 0 hours 11 minutes 15 seconds Scope In: 4:26:57 PM Scope Out: 4:48:31 PM Endoscopy Department at [facility] - [address] [place] [phone] Procedure Note Chetan Carrillo MD - 03/28/2025 [facility] Patient Name: Gabby Lovett Procedure [...] the physician, the nurse, theanesthetist and the fire extinguisher technician in the pre-procedure area in the [...] history of colonic polyps CPT copyright 2020 [employer]. All rights reserved. The codes documented in this report are preliminary and upon pole incisor operator reviewmay be revised to meet current compliance requirements. Chetan Carrillo MD 03/28/2025 4:53:42 PM This report has been signed electronically.Chetan Carrillo MD Number of Addenda: 0 Note Initiated On: 03/28/2025 4:12 PM Scope Withdrawal Time: 0 hours 11 minutes 15 seconds Scope In: 4:26:57 PM Scope Out: 4:48:31 PM Endoscopy Department at [facility] - [address] [place] [phone] IMPRESSION: - The entire examined colon is normal on direct and retroflexion views. - No specimens collected. Recommendation: - Discharge patient to home. - Repeat colonoscopy in 10 years forsurveillance. Chetan Carrillo MD GI~PROCEDURE ORDERABLES Fin al Result * Hepatitis C Screening (03/01/2022) Pathologist [facility] Hepatitis C Screening Abstracted Historical Provider HEALTH [...] [employer]ALTH [employer] [place] [employer] Care Teams Multimedia Programmer Relationship Specialty Start Date End Date Lucy Koenig MD [address] [place] [address] [address] [place], [place] [phone] PCP - General Internal Medicine 03/28/25
--- OUTSIDE RECORDS SUMMARY | 2025-06-21 15:45 | XMS_ITS | Clinical Summary ---
Author Organization [facility] Prior to 12/01/24 Address [address] [place] [address] Care Team Providers Care Automation Controls Engineer Name Role Phone Nelli Bolton MD Primary Care Provider [phone] Allergies No known active allergies Medications Medication [...] age to complete this topic Care Teams Automation Controls Engineer Relationship Specialty Start Date End Date Nelli Bolton MD [address] [place] [id number] PCP - General Internal Medicine 12/30/23
== END 2025-06-21 15:20 | disposition home or self-care (01) ==
LOC: HO.HMCFM 14:13
PROVIDERS: PCP Internal Medicine; Visit Provider Internal Medicine
DX: Z00.00 Encounter for general adult medical examination without abnormal findings (principal); I87.2 Venous insufficiency (chronic) (peripheral); M81.8 Other osteoporosis without current pathological fracture; M54.9 Dorsalgia, unspecified